=== PATIENT | female | born 2000 | race Caucasian/White ===

== ENCOUNTER 2021-11-19 08:30 | Emergency (ER) | payer BC ==
[~2021-11-19] VITALS: Ht 162.6 cm; Wt 99.8 kg
[2021-11-19 08:43] VITALS: BP_SYST 130
--- NOTE | 2021-11-19 08:49 | NUR ---
Placed in room 4 . Placed on special events assistant, blood pressure machine and pulse oximeter. To gown for exam. Side rails up. Report given to FRANKLYN.
--- NOTE | 2021-11-19 08:52 | NUR ---
ER DR. JUNE AT THE BEDSIDE EXAMINING PT
--- NOTE | 2021-11-19 08:54 | NUR ---
Note braydon in ED - 11/19/21 at 0854 by [email or web address] Placed in room [] . Placed on alarm security or surveillance monitor, blood pressure machine and pulse oximeter. To gown for exam. Side rails up. Report given to [].
[2021-11-19] MEDS ORDERED: KETOROLAC TROMETHAMINE 30 MG VIAL IVP ONE (09:00)
[2021-11-19] MEDS ORDERED: NACL 0.9% 1,000 ML IV ONE (09:00)
[2021-11-19] MEDS ORDERED: ONDANSETRON HCL 4 MG/2 ML VIAL IVP ONE (09:00)
--- NOTE | 2021-11-19 09:00 | NUR ---
first encounter to pt at this time. pt bib self from home with no sig pmhx here c/o sudden onset of L sided abd pain with nausea x today am. denies vomiting diarrhea chills or fevers. pt is AOx4, resp even and unlabored. 20G to L[facility], labs drawn and sent out. ua cup given. will medicate after hcg results. vss nad. wctm
[2021-11-19 09:19] LABS: BASOPHILS # (AUTO) 0.1 K/uL (0.0-0.2); BASOPHILS % (AUTO) 0.9 % (0.0-2.0); EOSINOPHILS # (AUTO) 0.1 K/uL (0.0-0.4); EOSINOPHILS % (AUTO) 0.5 % (0.0-4.0); HEMATOCRIT 39.1 % (36-48); HEMOGLOBIN 13.2 g/dL (12.0-16.0); LYMPHOCYTES # (AUTO) 1.9 K/uL (1.0-5.5); LYMPHOCYTES % (AUTO) 16.1 % (20.5-51.5); MEAN CORPUSCULAR HEMOGLOBIN 28 pg (27-31); MEAN CORPUSCULAR HGB CONC 34 % (32-36); MEAN CORPUSCULAR VOLUME 82 fL (79.0-98.0); MONOCYTES # (AUTO) 0.5 K/uL (0.0-1.0); MONOCYTES % (AUTO) 4.6 % (1.7-9.3); NEUTROPHILS % (AUTO) 77.9 % (40.0-70.0); PLATELET COUNT (AUTO) 382 K/uL (130-430); RED BLOOD CELL COUNT(AUTO) 4.77 MIL/uL (4.2-6.2); RED CELL DISTRIBUTION WIDTH 14.4 % (9.0-15.0); WHITE BLOOD COUNT (AUTO) 11.6 K/uL (4.8-10.8)
--- NOTE | 2021-11-19 09:34 | NUR ---
neg uhcg. urine is bright red, sent to lab for analysis
[2021-11-19 09:47] LABS: BILIRUBIN,URINE NEGATIVE (NEGATIVE); BLOOD, URINE 3+ (NEGATIVE); CLARITY/URINE SL CLOUDY (CLEAR); COLOR,URINE RED (YELLOW); GLUCOSE,URINE NEGATIVE (NEGATIVE); KETONES,URINE 1+ (NEGATIVE); LEUKOCYTE ESTERASE ,URINE 2+ (NEGATIVE); NITRITE, URINE POSITIVE (NEGATIVE); PROTEIN URINE 3+ (NEGATIVE)
[2021-11-19 10:03] LABS: BACTERIA,URINE FEW /HPF (None Seen); MUCUS,URINE 1+ /LPF (None Seen); RBC,URINE >100 /HPF (0-3)
[2021-11-19 10:08] LABS: CALCIUM 8.5 mg/dL (8.4-11.0); CREATININE 0.87 mg/dL (0.55-1.30); POTASSIUM 3.4 mmol/L (3.5-5.1)
[2021-11-19 10:15] LABS: ALBUMIN 3.9 g/dL (3.4-4.8); TOTAL BILIRUBIN 0.1 mg/dL (0.0-1.0)
[2021-11-19] MEDS ORDERED: TAMS-11 PO (11:16)
[2021-11-19] MEDS ORDERED: TRAM50TA PO (11:16)
[2021-11-19 11:48] VITALS: BP_SYST 125
--- NOTE | 2021-11-19 11:52 | NUR ---
Patient given written and verbal discharge instructions and verbalizes understanding. ER MD discussed with patient the results and treatment provided. Patient in stable condition. ID arm band removed. IV catheter removed intact and dressing applied, no active bleeding. Rx sent to pharmacy. Patient educated on pain management and to follow up with PMD. Pain Scale . Opportunity for questions provided and answered. Medication side effect fact sheet provided.
--- NOTE | 2021-12-03 20:26 | NUR ---
ADEENDUM: Nacl 0.9% 1000ml start time 09:33hr end time 10:33hr
== END 2021-11-19 11:52 | disposition home or self-care (01) ==
LOC: SED 08:30
DX: N23 Unspecified renal colic (principal); R11.10 Vomiting, unspecified; Z79.899 Other long term (current) drug therapy
CPT/HCPCS: 99284; 74176; 96374; 96361; 96375; 80053; 81000; 83690; 85025; 87086; 36415; 76376; 81025; J1885; J2405; J7030